=== PATIENT | male | born 1935 | race African-American/Black ===

== ENCOUNTER 2017-10-13 20:28 | Emergency (ER) | payer MEDICARE ==
[~2017-10-13] VITALS: Ht 180.3 cm; Wt 113.0 kg
[~2017-10-13 20:28] MED LIST: OMEP20 PO
[2017-10-13] MEDS ORDERED: NIFE10 PO (20:44)
[2017-10-13] MEDS ORDERED: LOSA50TA37 PO (20:44)
[2017-10-13] MEDS ORDERED: TICA90TA PO (20:44)
[2017-10-13] MEDS ORDERED: ASPI81TA33 PO (20:44)
[2017-10-13] MEDS ORDERED: CARV12 PO (20:44)
[2017-10-13] MEDS ORDERED: GLIP10 PO (20:44)
[2017-10-13] MEDS ORDERED: CLON.2 PO (20:44)
[2017-10-13] MEDS ORDERED: RIVA15T PO (20:44)
[2017-10-13] MEDS ORDERED: ATOR10TA84 PO (20:44)
[2017-10-13 20:52] LABS: GLUCOSE,POINT OF CARE 119 MG/DL (70-110)
[2017-10-13 21:33] LABS: BASOPHILS % (AUTO) 0.1 % (0.0-2.0); EOSINOPHILS % (AUTO) 0.4 % (1.0-6.0); HEMATOCRIT 34.9 % (41-53); LYMPHOCYTES # (AUTO) 1.1 K/uL (1.0-4.8); LYMPHOCYTES % (AUTO) 10.5 % (22.0-44.0); MEAN CORPUSCULAR HEMOGLOBIN 29.2 pg (26.0-34.0); MEAN CORPUSCULAR HGB CONC 34.5 G/dL (31.0-37.0); MEAN CORPUSCULAR VOLUME 85 fL (80-100); MONOCYTES % (AUTO) 9.2 % (2.0-9.0); NEUTROPHILS # (AUTO) 8.4 K/uL (1.8-7.7); NEUTROPHILS % (AUTO) 79.8 % (40.0-70.0); PLATELET COUNT (AUTO) 231 K/uL (150-450); RED BLOOD CELL COUNT(AUTO) 4.12 MIL/uL (4.50-5.90); RED CELL DISTRIBUTION WIDTH 14.2 % (11.5-14.5); WHITE BLOOD COUNT (AUTO) 10.6 K/uL (4.5-11.0)
[2017-10-13 21:42] LABS: ANION GAP 8 mmol/L (8-16); CALCIUM, TOTAL 8.6 mg/dL (8.8-10.5); CARBON DIOXIDE 29 mmol/L (22-29); CHLORIDE 101 mmol/L (98-107); CREATININE 1.17 mg/dL (0.60-1.30); GLOMERULAR FILTR. RATE CALC > 60 mL/min (>60); POTASSIUM 3.5 mmol/L (3.5-5.1); SODIUM SERUM 138 mmol/L (136-145); UREA NITROGEN, BLOOD 19 mg/dL (7-18)
[2017-10-13 21:47] LABS: INR 1.2 (0.9-1.1); PROTHROMBIN TIME 13.1 SEC (9.4-11.6)
[2017-10-13 21:48] LABS: ALANINE AMINOTRANSFERASE 27 U/L (12-78); ALBUMIN 3.2 g/dL (3.4-5.0); ASPARTATE AMINOTRANSFERASE 19 U/L (15-37); BILIRUBIN,TOTAL 0.6 mg/dL (0.1-1.0); TOTAL PROTEIN, SERUM 7.6 g/dL (6.4-8.2)
[2017-10-13] MEDS ORDERED: PANTOPRAZOLE SODIUM 80 MG in SODIUM CHLORIDE 0.9% 50 ML IV ONE (23:45)
[2017-10-14] MEDS ORDERED: PANTOPRAZOLE SODIUM 80 MG in SODIUM CHLORIDE 0.9% 100 ML IV SCH ×2
[2017-10-14] MEDS ORDERED: IOVERSOL 350 MG/ML 150 ML VIAL ONE (00:34)
[2017-10-14] MEDS ORDERED: SODIUM CHLORIDE 0.9% 100 ML ONE (00:34)
[2017-10-14 07:52] VITALS: BP 171/89
== END 2017-10-14 08:58 | disposition short-term general hospital (02) ==
LOC: EMS 20:29 → AHU 20:54 → UNDOADMIN 20:54 → EMS 10-14 08:58
DX: K92.2 Gastrointestinal hemorrhage, unspecified (principal); R04.2 Hemoptysis; K22.8 Other specified diseases of esophagus; I82.622 Acute embolism and thrombosis of deep veins of left upper extremity; I10 Essential (primary) hypertension; E11.9 Type 2 diabetes mellitus without complications
CPT/HCPCS: 36415; 71020; 71260; 74177; 80053; 82271; 82962; 85025; 85610; 85730; 86850; 86900; 86901; 93005; 96365; 96366; 99285; C9113 ×2; J7050 ×2; Q9967